=== PATIENT | female | born 2000 | race Caucasian/White ===

== ENCOUNTER 2023-06-16 14:46 | Emergency (ER) | payer OTHER ==
[~2023-06-16] VITALS: Ht 154.9 cm; Wt 51.2 kg
[2023-06-16] MEDS ORDERED: PHENAZOPYRIDINE 100 MG TAB PO ONE (16:25)
[2023-06-16] MEDS ORDERED: NITROFURANTOIN (MACROBID) 100 MG CAP PO ONE (16:25)
[2023-06-16] MEDS ORDERED: PYRI1TAB5 PO (16:28)
[2023-06-16] MEDS ORDERED: MACR100C43 PO (16:28)
[2023-06-16 16:36] VITALS: BP 105/64; TEMP 98.1; O2SAT 98
[2023-06-16 18:11] LABS: GC DNA AMPLIFICATION NEGATIVE (NEGATIVE)
== END 2023-06-16 16:51 | disposition home or self-care (01) ==
LOC: M ED 14:46
DX: N30.00 Acute cystitis without hematuria (principal); Z79.899 Other long term (current) drug therapy

== ENCOUNTER 2023-10-28 15:09 | Emergency (ER) | payer OTHER ==
[~2023-10-28] VITALS: Ht 154.9 cm; Wt 49.2 kg
[~2023-10-28 15:09] MED LIST: MACR100C43 PO; PYRI1TAB5 PO
[2023-10-28 17:16] VITALS: BP 108/60; TEMP 97.3; O2SAT 100
[2023-10-28 17:37] LABS: RSV AMPLIFICATION NEGATIVE (NEGATIVE)
== END 2023-10-28 17:17 | disposition home or self-care (01) ==
LOC: M ED 15:09
DX: J02.9 Acute pharyngitis, unspecified (principal)

== ENCOUNTER 2023-12-19 19:18 | Emergency (ER) | payer OTHER ==
[~2023-12-19] VITALS: Ht 154.9 cm; Wt 46.3 kg
[2023-12-19] MEDS ORDERED: OXYC-1 PO (19:25)
[2023-12-19] MEDS ORDERED: BUSP5TA PO (19:25)
[2023-12-19 21:37] LABS: BASO % 0.4 % (0.0-1.0); HEMATOCRIT 36.2 % (36.0-47.0); HEMOGLOBIN 12.6 g/dl (12.0-15.5); LYMPH # 0.6 10^3/uL (1.5-5.0); LYMPH % 6.2 % (24.0-44.0); MEAN CORPUSCULAR HEMOGLOBIN 30.8 pg (27.0-33.0); MEAN CORPUSCULAR HGB CONC 34.8 g/dl (32.0-36.5); MEAN CORPUSCULAR VOLUME 88.5 fl (80.0-96.0); MONO # 0.7 10^3/uL (0.0-0.8); MONO % 6.9 % (2.0-8.0); NEUTROPHILS # 8.7 10^3/uL (1.5-8.5); NEUTROPHILS % 86.3 % (36.0-66.0); PLATELET COUNT, AUTOMATED 260 10^3/uL (150-450); RED BLOOD COUNT 4.09 10^6/uL (4.00-5.40); WHITE BLOOD COUNT 10.1 10^3/uL (4.0-10.0)
[2023-12-19] MEDS ORDERED: ISOVUE-370 76% 100ML VIAL As Ordered ONE (21:39)
[2023-12-19 21:40] LABS: ERYTHROCYTE SEDIMENTATION RATE 12 mm/hr (0-20)
[2023-12-19 22:13] LABS: PROCALCITONIN <0.04 ng/ml
[2023-12-19] MEDS: ACETAMINOPHEN 325 MG TAB PO ONE (22:13)
[2023-12-19] MEDS: AUGMENTIN 875 MG TAB PO ONE (23:55)
[2023-12-20 00:15] LABS: HEMOGLOBIN A1c 4.6 % (4.0-6.0)
[2023-12-20] MEDS ORDERED: AMOX875T2 PO (00:23)
[2023-12-20 00:29] VITALS: BP 126/81; TEMP 99.1; O2SAT 100
== END 2023-12-20 00:58 | disposition home or self-care (01) ==
LOC: M ED 19:18
DX: J01.90 Acute sinusitis, unspecified (principal); Z79.2 Long term (current) use of antibiotics; Z79.899 Other long term (current) drug therapy
CPT/HCPCS: 36415; 70491; 80047; 81001; 83036; 83605; 84145; 85025; 85652; 86140; 87040; 87486; 87581; 87633; 87798; 87880; 99284; Q9967

== ENCOUNTER 2024-01-05 11:32 | Emergency (ER) | payer OTHER ==
[~2024-01-05] VITALS: Ht 154.9 cm; Wt 47.7 kg
[~2024-01-05 11:32] MED LIST changes: +AMOX875T2 PO; +BUSP5TA PO; +OXYC-1 PO
[2024-01-05 11:40] VITALS: BP 113/74; TEMP 97.6; O2SAT 100
[2024-01-05] MEDS ORDERED: MEDR4PAK PO (12:16)
[2024-01-05] MEDS ORDERED: HYDR-3363 PO (12:16)
== END 2024-01-05 12:24 | disposition home or self-care (01) ==
LOC: M ED 11:32
DX: R21 Rash and other nonspecific skin eruption (principal); Z79.811 Long term (current) use of aromatase inhibitors; Z79.899 Other long term (current) drug therapy

== ENCOUNTER → 2024-04-14 | Outpatient (REF) ==
[~2024-04-14] MED LIST changes: +HYDR-3363 PO; +MEDR4PAK PO
== END ==
LOC: M PLAIMG 09:51
PROVIDERS: ATTEND Nurse Practitioner Family
DX: M54.2 Cervicalgia (principal)